=== PATIENT | female | born 1995 | race American Indian/Alaskan Native ===

== ENCOUNTER 2017-10-21 12:21 | Emergency (ER) | payer MEDICAID ==
[2017-10-21 13:28] VITALS: BP 116/86
== END 2017-10-21 13:40 | disposition left against medical advice (07) ==
LOC: ED 12:21
DX: K08.89 Other specified disorders of teeth and supporting structures (principal); Z53.21 Procedure and treatment not carried out due to patient leaving prior to being seen by health care provider